=== PATIENT | female | born 1940 | race Caucasian/White ===

== ENCOUNTER → 2018-11-17 | Outpatient (CLI) | payer MEDICARE ==
--- NOTE | 2018-11-17 15:42 | CT ---
EXAMINATION TYPE: CT brain wo con DATE OF EXAM: 11/17/2018 COMPARISON: None HISTORY: Multiple falls. CT DLP: [address] of the brain was performed. The ventricles, basal cisterns and sulci overlying the cerebral convexities demonstrate mild enlargem ent. There is no evidence for intracranial hemorrhage or sulcal effacement. There is decreased attenuation about the periventricular white matter and deep white matter of both c erebral hemispheres, compatible with chronic small vessel ischemia. Differential diagnosis does inclu de demyelination. No mass effects are seen.No midline shift. Osseous calvarium is intact. If symptoms persist consider MRI. IMPRESSION: 1. Age related atrophic and chronic small vessel ischemic change without acute intracranial process s een at this time.
--- NOTE | 2018-11-17 16:33 | US ---
EXAMINATION TYPE: US carotid duplex BILAT DATE OF EXAM: 11/17/2018 COMPARISON: NONE CLINICAL HISTORY: R92.6 Repeated Falls. EXAM MEASUREMENTS: RIGHT: Peak Systolic Velocity (PSV) cm/sec ----- Right CCA: 131.9 ----- Right ICA: 166.8 ----- Right ECA: 107.7 ICA/CCA ratio: 1.3 RIGHT: End Diastole cm/sec ----- Right CCA: 26.8 ----- Right ICA: 24.8 ----- Right ECA: 0.0 LEFT: Peak Systolic Velocity (PSV) cm/sec ----- Left CCA: 81.7 ----- Left ICA: 107.0 ----- Left ECA: 100.5 ICA/CCA ratio: 1.3 LEFT: End Diastole cm/sec ----- Left CCA: 13.6 ----- Left ICA: 34.5 ----- Left ECA: 0.0 VERTEBRALS (direction of flow): Right Vertebral: Antegrade Left Vertebral: Antegrade Rhythm: Normal Extensive shadowing plaque bilaterally. Mildly elevated velocities noted. No significant stenosis. IMPRESSION: Exam is limited due to overlying shadowing by calcific plaque. There appears to be elevated velocity within the right internal carotid artery although the internal carotid artery to common carotid arter y ratio is within normal limits. Overall findings suggest 50% or less stenosis of the bilateral carot id bulbs and internal carotid arteries. No hemodynamically significant stenosis. Criteria for Assigning % of Stenosis / Diameter reduction (Estimation based on the indirect measurements of the internal carotid artery velocities (ICA PSV). 1. Normal (no stenosis)=ICA PSV < 125 cm/s: ratio < 2.0: ICA EDV<40 cm/s. 2. Less than 50% stenosis=ICA PSV < 125 cm/s: ratio < 2.0: ICA EDV<40 cm/s. 3. 50 to 69% stenosis=ICA PSV of 125 to 230 cm/s: ration 2.0 ? 4.0: ICA EDV 40-100 cm/s. 4. Greater than 70% stenosis to near occlusion= ICA PSV > 230 cm/s: ratio > 4.0: ICA EDV > 100 cm/s. 5. Near occlusion= ICA PSV velocities may be low or undetectable: variable ratio and ICA EDV. 6. Total occlusion=unable to detect flow.
== END ==
LOC: RADCTMAIN 15:18
PROVIDERS: ATTEND Family Medicine
DX: I65.23 Occlusion and stenosis of bilateral carotid arteries (principal); G31.9 Degenerative disease of nervous system, unspecified; I67.82 Cerebral ischemia
CPT/HCPCS: 70450; 93880

== ENCOUNTER → 2023-01-08 | Outpatient (CLI) | payer MEDICARE ==
[2023-01-08 10:37] LABS: African American GFR (CKD) 74 (>60 ml/min/1.73 sqM); Anion Gap 6 mmol/L; Blood Urea Nitrogen 27 mg/dL (7-17); Carbon Dioxide 27 mmol/L (22-30); Chloride 107 mmol/L (98-107); Magnesium 2.2 mg/dL (1.6-2.3); Non-African American GFR(CKD) 64 (>60 ml/min/1.73 sqM); Potassium 4.9 mmol/L (3.5-5.1); Sodium 140 mmol/L (137-145)
[2023-01-08 10:41] LABS: HCT 39.8 % (34.0-46.0); HGB 13.1 gm/dL (11.4-16.0); MCHC 32.8 g/dL (31.0-37.0); MCV 91.5 fL (80.0-100.0); Platelet Count 180 k/uL (150-450); RBC 4.35 m/uL (3.80-5.40); RDW 13.2 % (11.5-15.5); WBC 8.1 k/uL (3.8-10.6)
== END | disposition home or self-care (01) ==
LOC: LABWHC1 09:36
PROVIDERS: ATTEND Internal Medicine Interventional Cardiology
DX: Z01.812 Encounter for preprocedural laboratory examination (principal)
CPT/HCPCS: 36415; 80051; 82565; 83735; 84443; 84520; 85027

== ENCOUNTER 2023-01-11 09:17 | Day surgery (SDC) | payer MEDICARE ==
[2023-01-08 14:05] VITALS: BMI 26.6
[~2023-01-11 09:17] MED LIST: ALPRAZolam 0.25 MG TAB PO PRN; ALPRAZolam 0.5 MG TAB PO PRN; ASPIRIN 325 MG TAB PO STA; ATORVASTATIN 80 MG TAB PO STA; HEPARIN SODIUM,PORCINE 10,000 UNIT in SODIUM CHLORIDE 0.9% 1,000 ML IRRIGATION PRN; HEPARIN SODIUM,PORCINE 2,500 UNIT in SODIUM CHLORIDE 0.9% 250 ML IRRIGATION PRN; NITROGLYCERIN SL TABS 0.4 MG TAB SUBLINGUAL PRN; SODIUM CHLORIDE 0.9% 1,000 ML in EMPTY BAG 1 BAG IV SCH
[2023-01-11] MEDS ORDERED: SODIUM CHLORIDE 0.9% 1,000 ML IV ONE (09:28)
[2023-01-11 09:47] VITALS: RESP 16; TEMP 97.6
[2023-01-11 09:48] LABS: INR 1.2 (<1.2); Prothrombin Time 12.7 sec (9.0-12.0)
[2023-01-11] MEDS ORDERED: VERAPAMIL 2.5 MG/ML 2 ML AMP ONE (10:20)
[2023-01-11] MEDS ORDERED: HEPARIN SODIUM 1,000 UN/ML (10ML VL) ONE (10:38)
[2023-01-11] MEDS ORDERED: MIDAZOLAM 2 MG/2 ML VIAL IVP ONE (10:56)
[2023-01-11] MEDS ORDERED: LIDOCAINE 1% INJ 10MG/ML (5 ML VIAL-PF) SQ ONE (11:00)
[2023-01-11] MEDS ORDERED: VERAPAMIL SYRINGE (5 MG/10 ML) INTRAARTER ONE (11:02)
[2023-01-11] MEDS ORDERED: HEPARIN SODIUM 1,000 UN/ML (10ML VL) IVP ONE (11:03)
[2023-01-11] MEDS ORDERED: NITROGLYCERIN SL TABS 0.4 MG TAB SUBLINGUAL ONE (11:13)
[2023-01-11] MEDS ORDERED: IOPAMIDOL-370 100ML BTL INJ ONE (11:15)
--- NOTE | 2023-01-11 12:23 | P.EPCON ---
Electrophysiology Consult - EP Consult Electrophysiology Consult: This is Dr. 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 History of hypertension and dyslipidemia Coronary angiography did not reveal any significant coronary artery disease Remote history of SVT ablation in 2009 PLAN: Detailed discussion with the patient I would recommend a diagnostic EP study to look for any inducible arrhythmias Treatment will be based upon the results of EP study and could result in either and ablation or recommendation for medical treatment depending upon the results TSH level today is normal Normal ejection fraction in 2020 HPI Patient has had 2 episodes of harshad loss of consciousness. The first episode occurred in September. She was in the yard and she fell backwards and lost consciousness completely. She did not have any prodrome. The second episode occurred in October. At that time she had a facial injury with extensive bruising An event monitor was prescribed and this showed runs of wide complex tachycardia ROS: No fever chills or rigors, no cough, phlegm or expectoration, no nausea, vomiting or diarrhea, no hematuria, dysuria, no musculoskeletal complaints, no strokes or seizures, no skin lesions. EXAMINATION: Afebrile, pulse rate 50 beats a minute, blood pressure 179/100 mmHg Breath sounds are clear no rhonchi no crackles Heart sounds are normal REVIEW OF LABS, ECG & MEDICAL DATA Hemoglobin 13.1, normal white count, normal platelet count 280,000 Normal electrolytes Normal renal function TSH 1.94
--- NOTE | 2023-01-11 14:36 | CC ---
CARDIAC CATHETERIZATION REPORT DATE OF SERVICE: 01/11/2023. PROCEDURES PERFORMED: Left heart catheterization and coronary angiography. PERFORMED BY: Dr. Neymar Jackson. ANESTHESIA: Moderate conscious sedation time was 18 minutes. The patient was administered Versed. Oxygen saturation, hemodynamics, and EKG were monitored closely. CLINICAL INFORMATION: Ms. Lucia Blue is an 82-year-old lady with a history of hypertension, hyperlipidemia, and paroxysmal atrial fibrillation with sick sinus syndrome, previous SVT ablation, and also has a history of paroxysmal atrial fibrillation on Coumadin. She had a recent episode of syncope about 6 weeks ago, and I performed an event monitor, which revealed runs of nonsustained ventricular tachycardia and some runs of atrial fibrillation. Given the fact she has syncope, collapse, and ventricular tachycardia, I advised cardiac catheterization prior to EP study. I explained to her the risks, benefits, options, and rationale and brought in for the procedure electively. PROCEDURE NOTE: Under local anesthesia and strict aseptic precautions, a 6-Bulgarian introducer was placed in the right radial artery. Using a JL3.5 and JR4 catheters, I performed coronary angiography, and the same right catheter was used to check LV pressure, but LV-gram was not performed. The sheath was taken out, and TR band was applied as per protocol with saturation in the fingers of the right hand of 95%. The patient tolerated the procedure well without complication. Results were discussed with her, but no family was available. I called her son, but the call went to voicemail. CARDIAC CATHETERIZATION FINDINGS: The left ventricular end-diastolic pressure was 5 to 6 mmHg without any gradient across aortic valve. CORONARY ANGIOGRAPHY FINDINGS: RIGHT CORONARY ARTERY: Large dominant vessel, no significant disease. Distally bifurcates into large PDA and PLV, both of which have only minor irregularities, no significant disease. LEFT MAIN CORONARY ARTERY: Short, patent vessel. No significant disease. Bifurcates into LAD and circumflex. LEFT ANTERIOR DESCENDING CORONARY ARTERY: Good-caliber vessel, extends along the anterior wall, giving off septal and diagonal branches. The last one-fourth of the LAD has mild diffuse disease, but no significant obstruction. Diagonal and septal branches have minor irregularities. LEFT POSTERIOR CIRCUMFLEX CORONARY ARTERY: Technically nondominant vessel, quite tortuous, gives off an obtuse marginal that runs laterally, has 2 small branches and a small AV groove branch. Circumflex is nondominant, has minor irregularities, no significant disease. FINAL IMPRESSION: This patient has a right-dominant system, normal filling pressures, no gradient, no significant obstructive coronary artery disease. RECOMMENDATIONS: Findings were discussed with the patient. I also discussed with Dr. Manrique. She will have EP studies and further evaluation given her ventricular tachycardia. MMPETRL / SARMADN: [id number] /
[2023-01-11 18:42] VITALS: BP 154/73; PULSE 49
== END 2023-01-11 15:43 | disposition home or self-care (01) ==
LOC: CATHCVL 09:17
PROVIDERS: ATTEND Internal Medicine Interventional Cardiology
DX: I47.1 Supraventricular tachycardia (principal); R55 Syncope and collapse; I10 Essential (primary) hypertension; E78.5 Hyperlipidemia, unspecified; I48.0 Paroxysmal atrial fibrillation; I49.5 Sick sinus syndrome; Z79.01 Long term (current) use of anticoagulants
CPT/HCPCS: 93458; 84443; 85610; C1769; C1894; J2250; J2001; J1644; Q9967

== ENCOUNTER → 2023-02-08 | Day surgery (SDC) | payer MEDICARE ==
[2023-02-01 11:29] VITALS: BMI 27.6
[~2023-02-08] MED LIST changes: -ALPRAZolam 0.25 MG TAB PO PRN; -ALPRAZolam 0.5 MG TAB PO PRN; -ASPIRIN 325 MG TAB PO STA; -ATORVASTATIN 80 MG TAB PO STA; -HEPARIN SODIUM,PORCINE 10,000 UNIT in SODIUM CHLORIDE 0.9% 1,000 ML IRRIGATION PRN; -HEPARIN SODIUM,PORCINE 2,500 UNIT in SODIUM CHLORIDE 0.9% 250 ML IRRIGATION PRN; -NITROGLYCERIN SL TABS 0.4 MG TAB SUBLINGUAL PRN; +SODIUM CHLORIDE 0.9% 1,000 ML IV SCH; -SODIUM CHLORIDE 0.9% 1,000 ML in EMPTY BAG 1 BAG IV SCH
[2023-02-08 12:35] VITALS: BP 186/81; PULSE 64; RESP 16; TEMP 97.9
[2023-02-08 12:41] LABS: INR 1.4 (<1.2); Prothrombin Time 14.2 sec (9.0-12.0)
--- NOTE | 2023-02-08 14:17 | P.EPPROC ---
- EP Procedure Note Electrophysiology Procedure Note: Diagnosis Recurrent falls associated with facial trauma Recent change in her medications with reduction in the lisinopril dose No definite arrhythmias on pacemaker telemetry Patient has a dual-chamber pacemaker, [facility] Normal TSH Twelve-lead EKG shows sinus mechanism 53 beats a minute narrow QRS normal ST segments normal QT interval Tilt table test per protocol Hypertensive at baseline Blood pressure 176/76 mmHg pulse rate in the 50s She was tilted upright at an angle of 70 Her blood pressure remained elevated throughout the test There was no evidence for dysautonomia or syncope She was laid supine at the end of the procedure Impression No evidence for neurocardiogenic syncope No evidence for orthostatic hypotension syndrome after reducing the dose of lisinopril Her blood pressure remains elevated Plan Increase metoprolol succinate to 50 mrem twice daily Lisinopril to continue 10 mg daily at bedtime Serum aldosterone, plasma renin activity and random cortisol levels sent today
== END | disposition home or self-care (01) ==
LOC: CATHEP 11:47
PROVIDERS: ATTEND Internal Medicine Clinical Cardiac Electrophysiology
DX: R55 Syncope and collapse (principal); I10 Essential (primary) hypertension; E78.5 Hyperlipidemia, unspecified; I47.1 Supraventricular tachycardia; I48.0 Paroxysmal atrial fibrillation; Z88.2 Allergy status to sulfonamides; Z88.8 Allergy status to other drugs, medicaments and biological substances; Z79.01 Long term (current) use of anticoagulants; Z79.51 Long term (current) use of inhaled steroids; Z79.899 Other long term (current) drug therapy
CPT/HCPCS: 82088; 82533; 84244; 84443; 85610; 93660

== ENCOUNTER → 2024-09-20 | Outpatient (CLI) | payer MEDICARE ==
--- NOTE | 2024-10-13 00:30 | EM ---
EVENT MONITOR The patient was monitored between the and September. CLINICAL INFORMATION: Baseline rhythm is sinus mechanism; the average rate 59 beats per minute, minimum of 48, maximum of 132 beats per minute. No atrial fibrillation was noted. Ventricular ectopic activity was present form of rare single PVCs, episode of idioventricular rhythm, and rate of 106 was noted and was asymptomatic. Subsequently, converted back to a sinus mechanism. Symptoms of lightheadedness, skipped beats correlated with sinus mechanism and at times with single PVCs. CONCLUSIONS: 1. Sinus mechanism baseline rhythm. 2. Rare ventricular ectopic activity. 3. Episode of accelerated idioventricular rhythm. 4. No atrial fibrillation was noted. 5. Symptoms did not correlate with clear dysrhythmia. MMODL / IJN: [id number] /
== END | disposition home or self-care (01) ==
LOC: RADECHMAIN 06:50
PROVIDERS: ATTEND Family Medicine
DX: I44.2 Atrioventricular block, complete (principal); I49.3 Ventricular premature depolarization
CPT/HCPCS: 93270